=== PATIENT | male | born 1955 | race Caucasian/White ===

== ENCOUNTER 2021-10-04 08:22 | Outpatient (CLI) | payer MEDICARE | END 2021-10-04 08:23 | disposition home or self-care (01) | LOC: CSHULT 08:22 | PROVIDERS: ATTEND Family Medicine | DX: Z13.6 Encounter for screening for cardiovascular disorders (principal) | CPT/HCPCS: 76706 ==

== ENCOUNTER 2022-05-05 09:01 | Outpatient (CLI) | payer MEDICARE | END 2022-05-05 09:02 | disposition home or self-care (01) | LOC: CSHCT 09:01 | PROVIDERS: ATTEND Otolaryngology Plastic Surgery within the Head & Neck | DX: H92.12 Otorrhea, left ear (principal); H73.892 Other specified disorders of tympanic membrane, left ear | CPT/HCPCS: 70480 ==